=== PATIENT | male | born 1965 | race Caucasian/White ===

== ENCOUNTER → 2017-01-03 | Emergency (ER) | payer OTHER ==
[~2017-01-03] MED LIST: HYDR-548 PO; TADA5TAB2 PO
--- NOTE | 2017-01-04 | NUR ---
PT DECIDED NOT TO BE SEEN AT PRESENT TIME LWBT
--- NOTE | 2017-01-04 09:00 | NUR ---
Unable to depart patient due to meditech error.
== END | disposition home or self-care (01) ==
LOC: ER 23:48
DX: Z53.21 Procedure and treatment not carried out due to patient leaving prior to being seen by health care provider (principal)

== ENCOUNTER 2017-08-24 12:47 | Emergency (ER) | payer OTHER ==
[~2017-08-24] VITALS: Ht 180.3 cm; Wt 103.4 kg
--- NOTE | 2017-08-24 15:00 | NUR ---
pt alert, oriented x 4 presents with right elbow pain swelling x1 month x-ray completed d/c home after er Md explained procedure.
== END 2017-08-24 15:02 | disposition home or self-care (01) ==
LOC: ER 12:47
DX: M25.821 Other specified joint disorders, right elbow (principal); F17.200 Nicotine dependence, unspecified, uncomplicated; Z88.6 Allergy status to analgesic agent
CPT/HCPCS: 73070; 99284; A4663